=== PATIENT | male | born 1975 | race Caucasian/White ===

== ENCOUNTER 2023-08-04 18:17 | Emergency (ER) | payer OTHER, SELFPAY ==
[2023-08-04 18:30] VITALS: BP 140/93; PULSE 72; RESP 14; TEMP 37; O2SAT 98; BMI 25.1
--- NOTE | 2023-08-04 18:31 | ED.GENADULT ---
HPI - General Adult General Chief complaint: Ear Problems Stated complaint: rt ear ringing/low hearing Time Seen by Provider: 08/04/23 18:38 Source: patient and RN notes reviewed Mode of arrival: ambulatory Limitations: no limitations History of Present Illness HPI narrative: This is a 47-year-old male presenting to the emergency department with complaints of right ear blockage since today. Patient states that he has some pain in his right ear. No drainage from his ear. He states that he has diminished hearing from his right ear. Denies any dizziness. No fevers, chills, nausea, vomiting or diarrhea. Denies any headaches. No other complaints or concerns at this time. MD complaint: Right ear blockage Radiation: non-radiation Relieving factors: none Exacerbating factors: none Associated symptoms: denies other symptoms Treatments prior to arrival: none Related Data Previous Rx's Medication Instructions Recorded amoxicillin 875 mg-potassium 1 tab PO BID 7 days #14 tabs 08/04/23 clavulanate 125 mg tablet cetirizine 10 mg tablet (All Day 10 mg PO DAILY PRN allergy 08/04/23 Allergy (cetirizine)) symptoms #30 tabs Allergies Allergy/AdvReac Type Severity Reaction Status Date / Time No Known Allergies Allergy Verified 08/04/23 18:33 Review of Systems Review of Systems: Yes all other systems are reviewed and are negative Constitutional: Constitutional: Reports as per [facility] Past Medical History Attestation statement: The following information was validated with the patient. Social History Social History Advance Directives: No Advance Directives Information Provided: No Physical Exam ED Vital Signs: Vital Signs - 24 hr 08/04/23 18:30 Temperature 98.6 F Pulse Rate 72 Respiratory Rate 14 Blood Pressure 140/93 H Pulse Oximetry 98 Oxygen Delivery Method Room Air BMI result Body Mass Index 25.1 Const General: cooperative, comfortable and no acute distress Orientation/consciousness: patient oriented x3 Limitations: no limitations HENMT Other: Right ear: Right TM is erythematous and bulging, no canal erythema or edema. No mastoid tenderness. No cervical lymphadenopathy Left ear unremarkable Head: Yes normal to inspection, Yes normocephalic and Yes atraumatic Ears: hearing grossly normal bilaterally General nose exam: Normal external nose present Face and sinus: Yes normal facial exam Mouth: Normal oral and palatal mucosa present, oropharynx normal and moist mucous membranes Throat: Yes posterior oropharynx normal Eyes General: appearance normal, both eyes and all related structures Eyelids: Yes eyelids normal Conjunctivae: conjunctivae normal Sclerae: sclerae normal Pupils: Equal, round and reactive pupils present EOM: EOMs intact bilaterally Neck Neck: Yes normal visual inspection, Yes full ROM and Yes no lymphadenopathy Lymphatic: no lymphadenopathy noted Chest Chest palpation & inspection: normal inspection of the chest Resp Effort & Inspection: normal respiratory effort and able to speak in complete sentences Auscultation: clear to auscultation bilaterally, no crackles, no rales, no rhonchi and no wheezes Cardio Rate: regular rate Rhythm: regular rhythm Heart sounds: S1 normal heart sound present and S2 normal heart sound present GI Inspection: Yes normal to inspection Skin General skin exam: no rashes or lesions noted Trauma: no lacerations or abrasions Wounds: no wounds Neuro General: patient oriented x3 and moves all extremities Cranial nerves: Yes Equal, round and reactive pupils present Extrem General: Yes normal to inspection Right upper extremity: normal to inspection Left upper extremity: normal to inspection Right lower extremity: normal to inspection Left lower extremity: normal to inspection Medical Decision Making Medical Decision Making MDM Narrative: 47-year-old male presenting to the emergency department for evaluation of right ear blockage since today. He reports some pain, however reports more diminished hearing from his right ear. On arrival, vital signs within normal limits. Patient is afebrile. TM is erythematous and bulging. Will treat as an otitis media, also given cetirizine to help. Given return precautions. No other complaints or concerns at this time. Differential Diagnosis Differential Diagnoses: The differential diagnosis associated with the presentation includes Otitis media, externa, cerumen impaction, TM perforation Discharge Plan Discharge Clinical Impression: Otitis media Patient Disposition: Home, Self-Care Instructions: Ear Infection (ED) Additional Instructions: Your right ear is infected, please take full course of antibiotics. Drink plenty of fluids get plenty of rest. If any new or worsening symptoms occur, including but not limited to fevers, chills, chest pain, shortness breath, please return for re-evaluation. If you continued to have these symptoms, please follow-up with ENT, call to make an appointment. Prescriptions: New amoxicillin-pot clavulanate 875-125 mg tablet 1 tab PO BID 7 Days Qty: 14 0RF cetirizine [All Day Allergy (cetirizine)] 10 mg tablet 10 mg PO DAILY PRN (Reason: allergy symptoms) Qty: 30 0RF Referrals: David Ramirez [Physician] - Interventions: ED Discharge Assessment Last Done: 08/04/23 19:00 Discharge Date/Time: 08/04/23 19:00
== END 2023-08-04 19:00 | disposition home or self-care (01) ==
PROVIDERS: Emergency Provider Student in an Organized Health Care Education/Training Program
DX: H66.91 Otitis media, unspecified, right ear (principal)
CPT/HCPCS: 99282; 99283